=== PATIENT | female | born 1960 | race Caucasian/White ===

== ENCOUNTER → 2016-09-29 | Outpatient (CLI) | payer BC ==
--- NOTE | 2016-09-30 14:54 | RADRPT ---
Vent Rate: 76 bpm RR Interval: 0 msec HI Interval: 168 msec QRS Duration: 86 msec QT Interval: 382 msec QTC Interval: 429 msec P-R-T Dexter: 53 - 49 - 48 degrees Normal sinus rhythm Normal ECG No previous tracing available for comparison Electronically Signed By: Armando Shay [id number]
== END | disposition home or self-care (01) ==
LOC: RAD 15:14
PROVIDERS: ATTEND Internal Medicine
DX: R07.89 Other chest pain (principal)
CPT/HCPCS: 93005

== ENCOUNTER → 2016-09-29 | Outpatient (CLI) | payer BC ==
[2016-09-29 09:07] LABS: ADD SCAN DIFF NO
[2016-09-29 09:13] LABS: BASOPHILS % 0.7 % (0.0-2.0); EOSINOPHILS # 0.2 10^3/ul (0.0-0.5); HEMATOCRIT 44.8 % (37.0-47.0); HEMOGLOBIN 15.1 g/dl (12.0-16.0); LYMPHOCYTES # 1.1 10^3/ul (0.8-2.9); LYMPHOCYTES % 24.9 % (15.0-51.0); MEAN CORPUSCULAR HEMOGLOBIN 31.7 pg (29.0-33.0); MEAN CORPUSCULAR HGB CONC 33.7 g/dl (32.0-37.0); MEAN CORPUSCULAR VOLUME 93.9 fl (82.0-101.0); MEAN PLATELET VOLUME 10.8 fl (7.4-10.4); MONOCYTE # 0.5 10^3/ul (0.3-0.9); MONOCYTES % 11.4 % (0.0-11.0); NEUTROPHIL # 2.6 10^3/ul (1.6-7.5); NEUTROPHILS % 58.6 % (39.0-77.0); PLATELET COUNT 212 10^3/UL (140-415); RED BLOOD COUNT 4.77 10^6/ul (4.20-5.40); RED CELL DISTRIBUTION WIDTH 12.7 % (11.5-14.5); WHITE BLOOD COUNT 4.5 10^3/ul (4.8-10.8)
[2016-09-29 09:31] LABS: INR 0.98
[2016-09-29 09:32] LABS: PARTIAL THROMBOPLASTIN TIME 30.9 Sec (25.0-35.0)
[2016-09-29 09:35] LABS: ALBUMIN 4.6 g/dl (3.3-4.9); ALBUMIN/GLOBULIN RATIO 1.21; BILIRUBIN,INDIRECT 1.2 mg/dl (0-1.1); BILIRUBIN,TOTAL 1.2 mg/dl (0.2-1.3); CALCIUM 9.7 mg/dl (8.4-10.2); CHOL/HDL RATIO 4.5 RATIO; CREATININE 0.73 mg/dl (0.44-1.00); POTASSIUM 4.5 mmol/L (3.5-5.1); TOTAL PROTEIN 8.4 g/dl (6.1-8.1)
== END | disposition home or self-care (01) ==
LOC: LAB 08:47
PROVIDERS: ATTEND Internal Medicine
DX: E78.5 Hyperlipidemia, unspecified (principal); R73.03 Prediabetes; D68.9 Coagulation defect, unspecified
CPT/HCPCS: 80053; 80061; 83036; 85025; 85610; 85730

== ENCOUNTER → 2018-03-01 | Outpatient (CLI) | END | disposition home or self-care (01) ==